=== PATIENT | female | born 1975 | race Caucasian/White ===

== ENCOUNTER 2016-03-17 09:27 | Outpatient (CLI) | payer OTHER | END 2016-03-17 09:28 | disposition home or self-care (01) | DX: E04.2 Nontoxic multinodular goiter (principal) ==

== ENCOUNTER 2016-04-15 08:45 | Outpatient (CLI) | payer OTHER ==
[2016-04-15] MEDS ORDERED: BUFFERED LIDOCAINE 10 ML SYRINGE IU ONE (16:16)
== END 2016-04-15 08:46 | disposition home or self-care (01) ==
DX: E04.1 Nontoxic single thyroid nodule (principal)

== ENCOUNTER 2017-03-02 12:29 | Outpatient (CLI) | payer OTHER ==
[2017-03-02 12:53] LABS: BASOPHILS # (AUTO) 0.1 10^3/uL (0.0-0.1); BASOPHILS % (AUTO) 0.6 %; EOSINOPHILS # (AUTO) 0.1 10^3/uL (0.0-0.7); EOSINOPHILS % (AUTO) 1.1 %; LYMPHOCYTES # (AUTO) 2.9 10^3/uL (1.5-3.5); LYMPHOCYTES % (AUTO) 31.3 %; MEAN CORPUSCULAR HEMOGLOBIN 32.3 pg (27.0-31.0); MEAN CORPUSCULAR HGB CONC 34.6 g/dL (32.0-36.0); MEAN CORPUSCULAR VOLUME 93.3 fL (81.0-99.0); MEAN PLATELET VOLUME 8.8 fL (7.9-10.8); MONOCYTES # (AUTO) 0.5 10^3/uL (0.0-1.0); MONOCYTES % (AUTO) 5.8 %; NEUTROPHILS # (AUTO) 5.8 10^3/uL (1.5-6.6); NEUTROPHILS % (AUTO) 61.2 %; PLT - PLATELET COUNT 189 10^3/uL (130-450); RED BLOOD COUNT 4.64 10^6/uL (4.20-5.40); RED CELL DISTRIBUTION WIDTH 12.8 % (12.0-15.0); WHITE BLOOD COUNT 9.4 x10^3/uL (4.8-10.8)
--- NOTE | 2017-03-02 13:31 | PREOP HISTORY & PHYSICAL ---
DATE OF ADMISSION: 03/03/2017 IDENTIFICATION: This is a 42-year-old G2, P0-1-1-1. HISTORY OF PRESENT ILLNESS: Majo is a patient of [facility] who presented to us initially from [facility]. Majo had an annual examination on 09/22/2016, which included a Pap smear. 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 She was then referred to our clinic where Dr. Cr Rojas did a colposcopy on 10/19/2016. This subsequently revealed high-grade squamous intraepithelial lesion, severe dysplasia/CHELI 3 on the ectocervix at 6 o'clock and similarly on the ectocervix at 11 o'clock. Majo then underwent a cervical conization on 12/09/2016, which revealed superficially invasive well-differentiated squamous cell carcinoma with a maximum diameter of tumor of 3 mm, depth of invasion at 2 mm, negative for a lymphovascular space invasion. Margins of the deep resection surface are 2 mm, ectocervical margin 2 mm, endocervical margin greater than 1 cm. The background of high-grade squamous intraepithelial lesion, CHELI 3 ectocervical margin positive for CHELI 3, endocervical margin 3 mm from CHELI 3, AJCC stage pT1a1, NX MX. Dr. Rojas then consulted gynecological oncology who recommended Majo to undergo a simple hysterectomy, given that is a squamous cell carcinoma 1A1. Dr. Rojas unfortunately has retired so I am resuming care. I discussed with Majo my recommendations of proceeding to a total laparoscopic hysterectomy, bilateral salpingectomy and cystoscopy. Included in our discussion were the risks of hemorrhage, infection and damage to surrounding organs. With respect to damage of surrounding organs, this may be an inadvertent laceration cauterization or ligation of the adjacent intestines, bladder or ureters. Furthermore, after this procedure, she will no longer be able to have children nor will she have menses. Finally, though treatment for squamous cell carcinoma 1A1 is a simple hysterectomy, she will require to undergo serial cytology, perhaps Pap smears every 6 months to assure that there is no recurrence. After Majo's questions were answered to her satisfaction, she verbalized her desire to proceed with the aforementioned procedures. Consent forms have been signed. Currently, Majo is doing well. She denies any nausea, vomiting, fevers, chills, diarrhea, constipation. She is accompanied today with her Matthew and her grandchild Aliya. PAST MEDICAL HISTORY: Anxiety. PAST SURGICAL HISTORY: In 2017, cold knife cone biopsy. ALLERGIES: NO DRUG ALLERGIES. MEDICATIONS: Zoloft 50 mg. SOCIAL HISTORY: She has been able to quit smoking with Chantix as 2017. She denies any alcohol or illicit drug use. Majo works at [employer] and her Matthew, who is a beauty artist. She is helping to raise her granddaughter Aliya. Her daughter's name is Triny Munoz. PAST OBSTETRICAL HISTORY: One spontaneous vaginal delivery, weighing 5 pounds 8 ounces at 36 weeks. PAST GYNECOLOGICAL HISTORY: She denies any other sexually transmitted diseases with the exception of HPV. She does have monthly menses and they do alternate in heaviness and pain. The pain is not debilitating. FAMILY HISTORY: Great grandmother had breast cancer. REVIEW OF SYSTEMS: Negative unless otherwise stated. PHYSICAL EXAMINATION VITAL SIGNS: Weight is the 136 pounds, blood pressure 116/76, height is 62 inches, BMI is 20.3. GENERAL: Majo is a well-developed, well-nourished, female, in no apparent distress. She is alert and oriented x3. She appears to be her stated age. Majo is intelligent and very pleasant. HEENT: Within normal limits. HEART: Regular. No murmurs or rubs. PULMONARY: Lungs are clear to auscultation bilaterally. ABDOMEN: Soft, nontender. No masses, rebound, rigidity, or guarding. ASSESSMENT 1. A 42-year-old G2, P0-1-1-1. 2. 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 PLAN 1. Majo has signed consent forms 2. Majo will get a CBC and type and screen in preparation for tomorrow's surgery. 3. Anticipate giving Majo Celebrex as well as cefazolin preoperatively. She also will receive SCDs in the operating room, since she is at increased risk for DVT given the surgery and the diagnosis of squamous cell carcinoma. 4. Postoperative medications for her recuperation have been sent into [facility] in [place], [place], specifically for ibuprofen, Tylenol and Colace. A handwritten prescription for oxycodone has been given to Majo. 5. Majo is to see me at [facility] in 2 weeks for a routine postoperative examination. 6. Majo needs to continue to see me for repeat cytology, perhaps every 6 months Pap smear. TD: 03/02/2017 14:30 MTDD
== END 2017-03-02 12:30 | disposition home or self-care (01) ==
LOC: LAB 12:29
PROVIDERS: ATTEND Obstetrics & Gynecology
DX: Z01.812 Encounter for preprocedural laboratory examination (principal); C80.1 Malignant (primary) neoplasm, unspecified
CPT/HCPCS: 36415; 84703; 85025; 86850; 86900; 86901

== ENCOUNTER 2017-03-03 06:16 | Day surgery (SDC) | payer OTHER ==
[2017-03-03] MEDS ORDERED: ceFAZolin 2 GM/50 ML 2 GM/50 ML BAG IV ONE (06:30)
[2017-03-03] MEDS ORDERED: CELECOXIB 100 MG CAPSULE PO ONE (06:30)
[2017-03-03] MEDS ORDERED: LACTATED RINGERS 1,000 ML IV ONE ×4 (07:05→12:31)
[2017-03-03] MEDS ORDERED: LIDOCAINE-MPF 2% 5 ML VIAL IM ONE (07:30)
[2017-03-03] MEDS ORDERED: PHENYLEPHRINE 50 MG/5 ML VIAL IV ONE (07:30)
[2017-03-03] MEDS ORDERED: ONDANSETRON 4 MG/2 ML VIAL IVP ONE (07:30)
[2017-03-03] MEDS ORDERED: DEXAMETHASONE 4 MG/ML VIAL IVP ONE (07:30)
[2017-03-03] MEDS ORDERED: NEOSTIGMINE 1 MG/1 ML 10 ML MDV IVP ONE (07:30)
[2017-03-03] MEDS ORDERED: MIDAZOLAM 2 MG/2 ML VIAL IVP ONE (07:30)
[2017-03-03] MEDS ORDERED: ROCURONIUM 50 MG/5 ML VIAL IVP ONE (07:30)
[2017-03-03] MEDS ORDERED: KETOROLAC 30 MG/ML VIAL IVP ONE (07:30)
[2017-03-03] MEDS ORDERED: PROPOFOL 200 MG/20 ML VIAL IVP ONE (07:30)
[2017-03-03] MEDS ORDERED: fentaNYL 100 MCG/2 ML VIAL IVP ONE (07:30)
[2017-03-03] MEDS ORDERED: ACETAMINOPHEN 1,000 MG/100 ML 100 ML IV ONE (07:30)
[2017-03-03] MEDS ORDERED: GLYCOPYRROLATE 1 MG/5 ML VIAL IVP ONE (07:30)
[2017-03-03 08:30] LABS: HCG,QUALITATIVE BLOOD NEGATIVE
[2017-03-03] MEDS ORDERED: BUPIVACAINE 0.25%-EPI 1:200000 PF 30 ML VIAL SUBQ ONE ×2 (08:30)
[2017-03-03] MEDS ORDERED: METHYLENE BLUE 0.5% 50 MG/10 ML AMPULE IVP ONE (09:46)
[2017-03-03] MEDS ORDERED: ONDANSETRON 4 MG/2 ML VIAL ONE (10:23)
--- NOTE | 2017-03-03 10:26 | OPERATIVE REPORT ---
Operative Report - Other Other Information/Narrative: Date of Operation: 03/03/2017 Surgeon: Demi Gray DO FACOG Flue Dust Laborer: Thomas Hinson MD FACOG Sales Representative [employer]: Vinicius Ivan CRNA Anesthesia: GET Pre-op Dx: 1. 42 yo 2. 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 42 yo 2. Squamous cell carcinoma 1A1 Procedures: 1. TLH, BS 2. Cystoscopy Findings: 1. Filmy adhesions from the omentum to the uterus 2. Adhesions on adnexae bilaterally with left greater than the right 3. Normal appendix and liver edge 4. Normal uterus, ovaries and fallopian tubes Specimens: Uterus and fallopian tubes, en bloc Drains: Hackett catheter EBL: 20 mL Complications: None Dictation: [id number]
[2017-03-03] MEDS ORDERED: ATROPINE ABBOJECT 1 MG/10 ML SYRINGE IVP ONE (10:32)
[2017-03-03] MEDS: fentaNYL 100 MCG/2 ML VIAL ONE ×2 (10:44→10:50)
[2017-03-03] MEDS ORDERED: oxyCODONE 5 MG TABLET ONE ×2 (11:37→14:53)
--- NOTE | 2017-03-03 11:37 | OPERATIVE REPORT ---
DATE OF OPERATION: 03/03/2017 SURGEON: Demi De La Cruz DO, FACOG HOSPITALITY MANAGER: Thomas Hinson MD, FACOG MASTER PILOT: Vinicius Ivan CRNA ANESTHESIA: General endotracheal tube. PREOPERATIVE DIAGNOSES 1. A 42-year-old G2, P0-1-1-1. 2. 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 POSTOPERATIVE DIAGNOSES 1. A 42-year-old G2, P0-1-1-1 2. 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 PROCEDURE 1. Total laparoscopic hysterectomy and bilateral salpingectomy. 2. Cystoscopy. FINDINGS 1. Filmy adhesions on omentum and the uterus. 2. Adhesions seen bilaterally on the adnexa with the left side greater than the right side. 3. Normal appendix and liver edge. 4. Normal uterus, ovaries and fallopian Tubes. SPECIMENS: Uterus and fallopian tubes en bloc. DRAINS: Hackett catheter to gravity. ESTIMATED BLOOD LOSS: 20 mL COMPLICATIONS: None. BRIEF HISTORY: Majo is a patient of [facility], who was found to have squamous cell carcinoma of the cervix 1A1. She had a Pap smear in December of 2016 showing a high grade squamous intraepithelial lesion. Subsequent colposcopy revealed CHELI 3. She then had a cold knife cone biopsy which revealed squamous cell carcinoma in situ 1A1. After consultation with PRODUCE SPECIALIST /ONC, it was recommended that Majo undergo a simple hysterectomy. I discussed with Majo my recommendation to undergo a total laparoscopic hysterectomy, bilateral salpingectomy and cystoscopy. I discussed with Majo the risks, benefits, alternatives, indications, and expectations of the aforementioned procedures. Included is discussion of the risk of hemorrhage, infection and damage to surrounding organs. With respect to damage to surrounding organs, this may be an inadvertent laceration, cauterization or ligation of the adjacent intestines, bladder or ureters. Furthermore, with this procedure, she will not be able to have any more children nor would she have menses. Finally, due to the nature of the carcinoma, she will need to have more frequent cytology for surveillance. After all of Majo's questions were answered to her satisfaction, she verbalized her desire to proceed with surgery. Consent forms have been signed. Majo was identified and consented, taken to the operating room where IV access was already in place. She was then given sequential compression devices which were placed on the lower extremities and turned on. Majo was given 2 grams of Ancef for postoperative cellulitis prophylaxis. Majo was then given satisfactory general endotracheal tube anesthesia as per Vinicius Ivan CRNA. A Hackett catheter was placed in her bladder and a timeout was performed. We correctly identified the patient, site of the procedure and the procedures themselves. Majo was prepped and drapped in the normal sterile fashion in the lithotomy position using the Yellofin stirrups. A large VCare uterine manipulator and colpotimizer was placed on the uterus. Three laparoscopic port sites were first identified in the abdomen. All port sites were injected with 0.25% Marcaine with epinephrine. Approximately a total of 10 mL were used. Three 5 mm stab incisions were made in the subumbilical fold and in the right and left lower quadrants. The lower quadrant incisions were found by first identifying the anterior superior iliac spine and then moving 2 fingerbreadths superior and medial to those locations. The entrance to the abdomen was made using the Visiport trocars. Direct access to the abdomen was made. No damage to intraabdominal organs was noted. The other 2 port sites were placed under direct visualization of the camera. CO2 was then used to insufflate the abdomen thus obtaining satisfactory pneumoperitoneum. Inspection of the pelvis revealed that the omentum was adhesed to the uterus. Furthermore, there were significant thickened adhesions in the left adnexa. There were some smaller adhesions on the right adnexa. The appendix was also visualized and found to be within normal limits. The liver edge was seen as well as the gallbladder. The omentum was first dissected off the uterus using the LigaSure. Next, the left adnexa was lysed from the adhesions. The left fallopian tube was identified and followed out to the fimbriated end. The left fallopian tube was incised in the mesosalpinx. The true ligament of the ovary was then cauterized and incised with the LigaSure. Next, the round ligament was clamped, cauterized and incised with the LigaSure. This incision was then carried inferiorly through the broad ligament. An incision was made in the anterior leaf of the broad ligament and the incision was carried inferiorly and then medially in order to create a bladder flap. The vesicouterine peritoneum was then further dissected in order to develop this bladder flap. Next, the left uterine artery was identified, clamped, cauterized and incised with the LigaSure. The cardinal ligaments were similarly clamped, cut, and cauterized. Hemostasis was noted. In the same fashion, the right fallopian tube was then excised. In a similar fashion, the true ligament of the right ovary, right round ligament and right uterine artery were then clamped, cauterized, and incised. An incision was made in the broad ligament on the right side and then extended inferiorly in order to join the bladder flap that had been partially created. Further dissection was made on top of the cervical uterine tissue. At this point in time, the superior cup of the VCare was palpated easily. With the Harmonic blade, an incision was made on the vagina. The superior green cup of the VCare was seen. The cervix was then amputated from the vagina. The uterus and fallopian tubes were then removed from the pelvis. Pneumoperitoneum was maintained by placing a glove with sponges inside the vagina. The vaginal cuff was then closed with a running stitch of 3-0 V-Loc suture. Hemostasis was noted. The CO2 gas was then allowed to escape into the atmosphere relieving the pneumoperitoneum. All instruments were removed out of the abdomen and the three laparoscopic sites were closed with 4-0 Monocryl in subcuticular fashion and then Dermabond placed on top of each of the port sites. Attention was then turned towards the cystoscopy. With the 70-degree cystoscope and normal saline, the bladder was then visualized. Both ureteral orifices were identified and ureteral jets were seen bilaterally. A Hackett catheter was replaced. At this point in time, the procedure had been completed. All sponge, lap, and needle counts were correct x2 as per nurse report. Majo was taken back to recovery room in stable condition. She will be discharged to home later today after postoperative criteria have been met. Majo will be expected to urinate before she goes home. She already has prescriptions for pain medications for her convalescence. Majo is expected to see me at [facility] in 2 weeks for routine postop check. Again, she will need to have frequent cytology approximately every 6 months, at least for the next 2- 3 years. TD: 03/03/2017 12:32 [facility]
[2017-03-03 15:39] VITALS: BP 118/83
== END 2017-03-03 06:17 | disposition home or self-care (01) ==
LOC: SDS 06:16
PROVIDERS: ATTEND Obstetrics & Gynecology
PROC: 0UT74ZZ Resection of Bilateral Fallopian Tubes, Percutaneous Endoscopic Approach (ICD-10-PCS; 2017-03-03)
PROC: 0UT94ZZ Resection of Uterus, Percutaneous Endoscopic Approach (ICD-10-PCS; principal; 2017-03-03 07:30)
DX: D06.9 Carcinoma in situ of cervix, unspecified (principal); N73.6 Female pelvic peritoneal adhesions (postinfective); Z87.891 Personal history of nicotine dependence; F41.9 Anxiety disorder, unspecified
CPT/HCPCS: 58571; 84703; A9270; J0131; J0690; J7120

== ENCOUNTER 2019-02-17 07:00 | Outpatient (CLI) | payer OTHER | END 2019-02-17 23:59 | disposition home or self-care (01) | LOC: LAB.R 07:00 | PROVIDERS: ATTEND Physician Assistant Medical | DX: J02.9 Acute pharyngitis, unspecified (principal) | CPT/HCPCS: 87070; 87077 ==

== ENCOUNTER 2019-02-17 11:52 | Outpatient (CLI) | payer OTHER ==
[2019-02-17 19:05] LABS: BASOPHILS % (AUTO) 0.4 %; EOSINOPHILS # (AUTO) 0.1 10^3/uL (0.0-0.7); HGB - HEMOGLOBIN 14.8 g/dL (12.0-16.0); LYMPHOCYTES # (AUTO) 2.8 10^3/uL (1.5-3.5); LYMPHOCYTES % (AUTO) 28.5 %; MEAN CORPUSCULAR HEMOGLOBIN 32.7 pg (27.0-31.0); MEAN CORPUSCULAR HGB CONC 32.6 g/dL (32.0-36.0); MEAN CORPUSCULAR VOLUME 100.4 fL (81.0-99.0); MEAN PLATELET VOLUME 12.5 fL (7.9-10.8); MONOCYTES # (AUTO) 0.5 10^3/uL (0.0-1.0); MONOCYTES % (AUTO) 4.7 %; NEUTROPHILS # (AUTO) 6.4 10^3/uL (1.5-6.6); PLT - PLATELET COUNT 207 10^3/uL (130-450); RED BLOOD COUNT 4.52 10^6/uL (4.20-5.40); RED CELL DISTRIBUTION WIDTH 12.4 % (12.0-15.0); WHITE BLOOD COUNT 9.8 x10^3/uL (4.8-10.8)
[2019-02-17 19:26] LABS: CALCIUM 9.4 mg/dL (8.5-10.3); CREATININE 0.7 mg/dL (0.4-1.0)
== END 2019-02-17 23:59 | disposition home or self-care (01) ==
LOC: LAB.N 11:52
PROVIDERS: ATTEND Physician Assistant Medical
DX: J02.9 Acute pharyngitis, unspecified (principal)
CPT/HCPCS: 36415; 80048; 85025

== ENCOUNTER 2019-07-14 09:34 | Emergency (ER) | payer OTHER ==
--- NOTE | 2019-07-14 11:32 | XRAY Report ---
Reason: cough Procedure Date: 07/14/2019 Accession Number: [id number] / [id number] Procedure: XR - Chest 2 View X-Ray CPT Code: 41950 Final Report FULL RESULT: PROCEDURE: Chest 2 View X-Ray INDICATIONS: cough TECHNIQUE: 2 view(s) of the chest. COMPARISON: None. FINDINGS: Surgical changes and devices: None. Lungs and pleura: No pleural effusions or pneumothorax. Lungs are clear. Mediastinum: Mediastinal contours are normal. Heart size is normal. Bones and chest wall: No suspicious bony abnormalities. Soft tissues appear unremarkable. IMPRESSION: No acute cardiopulmonary disease process. Reviewed by: Tequila Luna MD, PhD on 07/14/2019 11:31 AM PDT Approved by: Tequila Luna MD, PhD on 07/14/2019 11:31 AM PDT Station ID: [id number]
[2019-07-14 11:51] LABS: BASOPHILS % (AUTO) 0.4 %; EOSINOPHILS # (AUTO) 0.1 10^3/uL (0.0-0.7); HGB - HEMOGLOBIN 15.4 g/dL (12.0-16.0); MEAN CORPUSCULAR HEMOGLOBIN 31.5 pg (27.0-31.0); MEAN CORPUSCULAR HGB CONC 33.3 g/dL (32.0-36.0); MEAN CORPUSCULAR VOLUME 94.7 fL (81.0-99.0); MEAN PLATELET VOLUME 10.2 fL (7.9-10.8); MONOCYTES # (AUTO) 0.8 10^3/uL (0.0-1.0); MONOCYTES % (AUTO) 7.3 %; NEUTROPHILS # (AUTO) 6.5 10^3/uL (1.5-6.6); PLT - PLATELET COUNT 228 10^3/uL (130-450); RED BLOOD COUNT 4.89 10^6/uL (4.20-5.40); RED CELL DISTRIBUTION WIDTH 12.1 % (12.0-15.0); WHITE BLOOD COUNT 10.4 x10^3/uL (4.8-10.8)
[2019-07-14 12:03] LABS: ALBUMIN 4.5 g/dL (3.2-5.5); ALBUMIN/GLOBULIN RATIO 1.4 (1.0-2.2); BILIRUBIN,TOTAL 0.7 mg/dL (0.2-1.0); CALCIUM 10.4 mg/dL (8.5-10.3); CREATININE 0.8 mg/dL (0.4-1.0); TOTAL PROTEIN 7.8 g/dL (6.7-8.2)
[2019-07-14 12:30] VITALS: BP 103/64
--- NOTE | 2019-07-14 12:34 | ED Physician Documentation ---
History of Present Illness - Stated complaint Stated Complaint: SORE THROAT - Chief complaint Chief Complaint: Heent - History obtained from History obtained from: Patient - Additonal information Additional information: Patient comes emergency department complaining of ongoing sore throat since last December, and intermittent episodes of chest tightness that occur randomly for the last few weeks. She states that she has been seen multiple times by her primary care physician who was tested her repeatedly for strep, as well as for mono and is referred her to ENT. Patient states that she was told to come here because of the chest discomfort. She states she is otherwise healthy and is fit and has had not had any dyspnea on exertion. No history of chest pain prior. She is not known to have GERD. She is also not known to have any allergies. No other complaints at this time. Patient states the only thing that makes the chest discomfort get better when it happens is to drink ice water. She states she feels somewhat anxious when she feels the symptoms come on, but that somehow, drinking ice water makes things better. Review of Systems Ten Systems: 10 systems reviewed and negative Constitutional: reports: Reviewed and negative Eyes: reports: Reviewed and negative Ears: reports: Reviewed and negative Nose: reports: Reviewed and negative Throat: reports: Sore throat Cardiac: reports: Chest pain / pressure (Tightness), Reviewed and negative Respiratory: reports: Reviewed and negative. 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 - Present Medications Home Medications: Ambulatory Orders Medication Instructions Recorded Confirmed Sertraline [Zoloft] 25 mg PO DAILY 12/09/16 03/03/17 - Allergies Allergies/Adverse Reactions: Allergies Allergy/AdvReac Type Severity Reaction Status Date / Time No Known Drug Allergies Allergy Verified 07/14/19 09:54 - Social History Does the pt smoke?: Yes Smoking Status: Current every day smoker Does the pt drink ETOH?: No Does the pt have substance abuse?: No - POLST Patient has POLST: No PD ED PE NORMAL - Vitals Vital signs reviewed: Yes - General General: Alert and oriented X 3, No acute distress - HEENT HEENT: Atraumatic, PERRL, EOMI, Moist mucous membranes, Pharynx benign, Dentition benign - Neck Neck: Supple, no meningeal sign - Cardiac Cardiac: RRR, No murmur, Strong equal pulses - Respiratory Respiratory: No respiratory distress, Clear bilaterally - Abdomen Abdomen: Soft, Non tender, Non distended - Derm Derm: Normal color, Warm and dry, No rash - Extremities Extremities: No deformity, No edema, No calf tenderness / cord - Neuro Neuro: Alert and oriented X 3, Other (Grossly normal) - Psych Psych: Normal mood, Normal affect Results - Vitals Vitals: Vital Signs - 24 hr 07/14/19 07/14/19 07/14/19 09:49 09:54 12:29 Temperature 36.0 C L Heart Rate 84 85 60 Respiratory 16 16 15 Rate Blood Pressure 137/87 H 125/65 103/64 O2 Saturation 99 99 100 Oxygen O2 Source Room air - Labs Labs: Laboratory Tests 07/14/19 07/14/19 07/14/19 11:41 11:41 11:41 WBC 10.4 RBC 4.89 Hgb 15.4 Hct 46.3 MCV 94.7 MCH 31.5 H MCHC 33.3 RDW 12.1 Plt Count 228 MPV 10.2 Neut # (Auto) 6.5 Lymph # (Auto) 3.0 [place] # (Auto) 0.8 Eos # (Auto) 0.1 Baso # (Auto) 0.0 Absolute Nucleated RBC 0.00 Nucleated RBC % 0.0 Sodium 139 Potassium 4.6 Chloride 101 Carbon Dioxide 29 Anion Gap 9.0 BUN 13 Creatinine 0.8 Estimated GFR (MDRD) 78 L Glucose 102 H Calcium 10.4 H Total Bilirubin 0.7 AST 17 ALT 27 Alkaline Phosphatase 40 L Troponin I High Sens 2.4 Total Protein 7.8 Albumin 4.5 Globulin 3.3 Albumin/Globulin Ratio 1.4 PD MEDICAL DECISION MAKING - ED course Complexity details: reviewed results, re-evaluated patient, considered differential, d/w patient ED course: I discussed with the patient that I think it is unlikely that she would have any lung or cardiac issues, given what she is describing, and that I actually suspect that she may have some issues with reflux at night, given the chest tightness and its resolution with ice water, as well as the ongoing sore throat. She is already been tested for other things that I would suggest, and the patient has not been febrile or otherwise ill to suggest COVID or influenza. Patient's labs and chest x-ray are unremarkable. I have advised her to continue her plans to follow-up with ENT, and have also advised her to discuss with her primary care physician whether she should have a GI referral, as well. Departure - Departure Disposition: Home, Self Care Clinical Impression: Sore throat, Chest tightness Condition: Stable Instructions: Sore Throats Self Care, ED Chest Pain Atypical Unkn Cause Comments: Your labs, EKG, and chest x-ray all look good. There is no evidence of any abnormalities, no evidence of an emergent condition causing her symptoms. Is not clear why you continue to have the chest discomfort and sore throat. As we discussed, the best course of action at this point is for you to follow-up with ENT as you see you have already begun planning to do. Please also talk to your primary care physician about possibly being referred to a antisqueak filler for endoscopy.
== END 2019-07-14 12:52 | disposition home or self-care (01) ==
LOC: ED 09:34
DX: J02.9 Acute pharyngitis, unspecified (principal); R07.89 Other chest pain; F17.200 Nicotine dependence, unspecified, uncomplicated
CPT/HCPCS: 36415; 71046; 80053; 84484; 85025; 93005; 99284

== ENCOUNTER 2019-09-01 07:00 | Outpatient (CLI) | payer OTHER | END 2019-09-01 23:59 | disposition home or self-care (01) | LOC: LAB.R 07:00 | PROVIDERS: ATTEND Family Medicine | DX: J02.9 Acute pharyngitis, unspecified (principal) | CPT/HCPCS: 87070; 87077 ==

== ENCOUNTER 2019-10-10 15:06 | Outpatient (CLI) | payer OTHER ==
[2019-10-10 18:33] LABS: HGB - HEMOGLOBIN 15.6 g/dL (12.0-16.0); MEAN CORPUSCULAR HEMOGLOBIN 33.4 pg (27.0-31.0); MEAN CORPUSCULAR HGB CONC 34.4 g/dL (32.0-36.0); MEAN CORPUSCULAR VOLUME 97.2 fL (81.0-99.0); MEAN PLATELET VOLUME 11.7 fL (7.9-10.8); RED BLOOD COUNT 4.67 10^6/uL (4.20-5.40); RED CELL DISTRIBUTION WIDTH 12.3 % (12.0-15.0); WHITE BLOOD COUNT 10.7 x10^3/uL (4.8-10.8)
[2019-10-10 18:49] LABS: RHEUMATOID FACTOR NEGATIVE (Negative)
[2019-10-10 18:53] LABS: URIC ACID 4.8 mg/dL (2.6-7.2)
[2019-10-10 18:57] LABS: CRP - C-REACTIVE PROTEIN < 1.0 mg/dL (0-1.0)
[2019-10-12 13:57] LABS: ANA SCREEN NEGATIVE (NEGATIVE); DNA (DS) ANTIBODY <1 IU/mL
[2019-10-12 20:51] LABS: CYCLIC CITRULL PEPTIDE CCP IGG <16 UNITS
== END 2019-10-10 23:59 | disposition home or self-care (01) ==
LOC: LAB.WCP 15:06
PROVIDERS: ATTEND Family Medicine
DX: J02.9 Acute pharyngitis, unspecified (principal)
CPT/HCPCS: 36415; 84550; 85025; 85027; 85651; 86038; 86140; 86200; 86225; 86430

== ENCOUNTER 2019-12-13 08:00 | Outpatient (CLI) | payer OTHER | END 2019-12-13 23:59 | disposition home or self-care (01) | LOC: LAB.R 08:00 | PROVIDERS: ATTEND Obstetrics & Gynecology | DX: Z11.3 Encounter for screening for infections with a predominantly sexual mode of transmission (principal) | CPT/HCPCS: 81599; 87491; 87591; 87661 ==

== ENCOUNTER 2019-12-13 15:04 | Outpatient (CLI) | payer OTHER ==
[2019-12-13 15:51] LABS: CHOL/HDL RATIO 2.4 (<4.4); CHOLESTEROL 191 mg/dL; HDL CHOLESTEROL 80 mg/dL; LDL CHOLESTEROL,CALCULATED 98 mg/dL; LDL/HDL RATIO 1.2 (<4.4); VLDL CHOLESTEROL 13 mg/dL
[2019-12-14 07:43] LABS: HIV AG/AB 4TH GEN NON-REACTIVE (NON-REACTIVE)
[2019-12-14 09:48] LABS: HEPATITIS B SURFACE ANTIGEN NON-REACTIVE (NON-REACTIVE)
== END 2019-12-13 15:05 | disposition home or self-care (01) ==
LOC: LAB 15:04
PROVIDERS: ATTEND Obstetrics & Gynecology
DX: Z13.220 Encounter for screening for lipoid disorders (principal); Z11.3 Encounter for screening for infections with a predominantly sexual mode of transmission; F17.210 Nicotine dependence, cigarettes, uncomplicated; Z13.29 Encounter for screening for other suspected endocrine disorder; Z13.21 Encounter for screening for nutritional disorder
CPT/HCPCS: 36415; 80061; 81599; 82306; 83721; 84443; 86592; 87340; 87389

== ENCOUNTER 2019-12-25 16:52 | Outpatient (CLI) | payer OTHER | END 2019-12-25 23:59 | disposition home or self-care (01) | LOC: LAB.R 16:52 | PROVIDERS: ATTEND Internal Medicine | DX: J35.9 Chronic disease of tonsils and adenoids, unspecified (principal) | CPT/HCPCS: 87070 ==

== ENCOUNTER 2019-12-30 09:43 | Outpatient (CLI) | payer OTHER ==
[2019-12-30] MEDS ORDERED: IOVERSOL 320 100 ML VIAL IVP ONE ×2 (10:15→11:22)
--- NOTE | 2019-12-30 11:04 | CT Report ---
PROCEDURE: SOFT TISSUE NECK W INDICATIONS: CHRONIC TONSIL AND ADENOID DISEASE CONTRAST: IV CONTRAST: Optiray 320 ml: 80 PO CONTRAST: *NO PO CONTRAST TECHNIQUE: After the administration of intravenous contrast, 3.0 mm axial sections acquired from the sella to th e aortic arch. Additional oblique axial 3.0 mm sections acquired through the pharynx. 3 mm thick co ok reformats were generated. For radiation dose reduction, the following was used: automated exp osure control, adjustment of mA and/or kV according to patient size. COMPARISON: None. FINDINGS: Image quality: Excellent. Lymph nodes: No enlarged lymph nodes seen throughout the neck. Vessels: Visualized vasculature appears patent. Neck spaces: In this patient with this given history, scrutiny is given to the tonsils and the adeno ids. On these images, the tonsils and adenoids do not appear abnormally enlarged. No masses or abnorm al enhancement can be seen. The oropharynx, nasopharynx, and pharynx demonstrate no mucosal lesions. The vocal cords, false vocal cords, pyriform sinuses, epiglottis, vallecula, and tongue base all mónica ear normal. Extramucosal spaces appear unremarkable. Glands: The parotid and submandibular glands appear normal. The thyroid demonstrates a 2.8 cm nodul e on the right. Miscellaneous: Visualized brain and orbits appear normal. Lung apices appear clear. Superficial so ft tissues appear normal. Bones: No suspicious bony lesions. Interosseous gas is seen involving the superior endplate of C6. T here is a likely vertebral body hemangioma seen along the posterior aspect of C7. Visualized sinuses and mastoids appear unremarkable. IMPRESSION: Normal appearing tonsils and adenoids. 2.8 cm right thyroid nodule incidentally noted. Further workup is recommended, beginning with a dedic ated thyroid ultrasound. No enlarged lymph nodes can be seen. Reviewed by: Alverto Musa MD on 12/30/2019 10:03 AM [facility] Approved by: Alverto Musa MD on 12/30/2019 10:03 AM [facility] Station ID: [id number]
== END 2019-12-30 09:44 | disposition home or self-care (01) ==
LOC: DI 09:43
PROVIDERS: ATTEND Internal Medicine
DX: J35.9 Chronic disease of tonsils and adenoids, unspecified (principal); E04.1 Nontoxic single thyroid nodule
CPT/HCPCS: 70491; Q9967

== ENCOUNTER 2020-01-12 12:59 | Outpatient (CLI) | payer OTHER ==
--- NOTE | 2020-01-12 13:55 | CT Report ---
PROCEDURE: Sinuses INDICATIONS: SINUS CONGESTION TECHNIQUE: Noncontrast 3.0 mm axial images acquired from the frontal sinuses to the mid-sella, with coronal and sagittal reformats. For radiation dose reduction, the following was used: automated exposure control , adjustment of mA and/or kV according to patient size. COMPARISON: None. FINDINGS: Image quality: Excellent. Maxillary Sinuses: No bony remodeling or destruction. Sinuses are clear. Ethmoid Air Cells: No bony remodeling or destruction. Sinuses are clear. Sphenoid Sinuses: No bony remodeling or destruction. Sinuses are clear. Frontal Sinuses: No bony remodeling or destruction. Sinuses are clear. Ostiomeatal Complexes: Ostiomeatal complexes are patent. 7 mm left and 3 mm right Mario cells. Woo er cells. Miscellaneous: Visualized intra-orbital contents are normal. No marilou bullosa. There is mild right solares deviation of the mid nasal septum and mild leftward deviation of the posterior nasal septum. IMPRESSION: 1. No significant sinusitis. 2. Nasal septal deviation. 3. Mario cells bilaterally. Reviewed by: Nahun Rome MD on 01/12/2020 1:54 PM PST Approved by: Nahun Rome MD on 01/12/2020 1:54 PM PST Station ID: [id number]
--- NOTE | 2020-01-12 17:24 | Ultrasound Report ---
PROCEDURE: Head or Neck Soft Tissue INDICATIONS: SINUS CONGESTION TECHNIQUE: Real-time scanning was performed of the thyroid gland, with image documentation. COMPARISON: Thyroid ultrasound 03/18/2016 FINDINGS: Right: Thyroid lobe measures 7.5 x 1.9 x 2.3 cm, and is homogeneous in echotexture. Left: Thyroid lobe measures 5.6 x 1.7 x 1.5 cm, and is homogenous in echotexture. Isthmus: 0.25 mm thick. Nodule number: One Location: Right lobe Size: 2.9 x 1.6 x 2.2 cm, compared to 2.5 x 1.1 x 1.8 cm. Composition: Partially solid Echogenicity: Isoechoic Shape: wider than tall. Margins: Smooth Echogenic foci: None Total points: 3 ACR TI-RADS category: 3 Nodule number: Two Location: Right lobe Size: 1.2 x 0.6 x 1.0 cm. Composition: Partially solid Echogenicity: Hypoechoic Shape: wider than tall. Margins: Smooth Echogenic foci: None Total points: 4 ACR TI-RADS category: 4 Nodule number: Three Location: 1.0 x 0.6 x 0.9 Size: 1.0 x 0.6 x 0.910 mm compared to 0.8 x 0.5 x 0.7 cm. Composition: Solid Echogenicity: Hypoechoic Shape: wider than tall. Margins: Smooth Echogenic foci: Punctate Total points: 7 ACR TI-RADS category: 5 IMPRESSION: 1. Mild interval increase in size of lesion 1, with previous fine-needle aspiration in 2017. Recommen d repeat fine-needle aspiration given interval increase in size. 2. New additional right lobe lesion seen as lesion 2. Given BI-RADS category and size, recommend inte rval follow-up at 1, 2, 3 and 5 years. 3. Minimal interval increase in size of lesion 3 within the left lobe, category 5. Given interval inc rease in size, it meets criteria for fine-needle aspiration. Reviewed by: Jami Curry MD on 01/12/2020 5:23 PM PST Approved by: Jami Curry MD on 01/12/2020 5:23 PM PST Station ID: [id number]
== END 2020-01-12 13:00 | disposition home or self-care (01) ==
LOC: DI 12:59
PROVIDERS: ATTEND Internal Medicine
DX: J34.89 Other specified disorders of nose and nasal sinuses (principal); J34.2 Deviated nasal septum; E04.1 Nontoxic single thyroid nodule
CPT/HCPCS: 70486

== ENCOUNTER 2020-01-16 14:13 | Outpatient (CLI) | payer OTHER ==
--- NOTE | 2020-01-25 09:38 | Mammography Report ---
BILATERAL DIGITAL SCREENING MAMMOGRAM 3D/2D: 01/16/2020 CLINICAL: Routine screening. Comparison is made to exams dated: 02/24/2010 mammogram - [facility], 02/24/2010, 03/14/1999 [facility], 03/13/1999 mammogram - [facility], and 03/13/1999 [facility]. The tissue of both breasts is extremely dense, which lowers the sensitivity of mammography. No significant masses, calcifications, or other findings are seen in either breast. There has been no significant interval change. IMPRESSION: NEGATIVE There is no mammographic evidence of malignancy. A 1 year screening mammogram is recommended. This exam was interpreted at Station ID: [id number]. NOTE: For mammograms, a report in lay terms will be sent to the patient. Approximately 15% of breast malignancies will not be visualized mammographically. In the management of a palpable breast mass, a negative mammogram must not discourage biopsy of a clinically suspicious lesion. Electronically Signed By: Gisela robertson/joseph:01/25/2020 08:52:10 ACR BI-RADS Category 1: Negative 3341F PARENCHYMAL PATTERN: (VD) - The breast(s) demonstrate(s) extremely dense parenchyma, limiting the sen sitivity of mammography. BI-RADS CATEGORY: (1) - 1 RECOMMENDATION: (ANNUAL) - Recommend routine annual screening mammography. 20210116 1 year screening LATERALITY: (B)
== END 2020-01-16 14:14 | disposition home or self-care (01) ==
LOC: DI.N 14:13
PROVIDERS: ATTEND Obstetrics & Gynecology
DX: Z12.31 Encounter for screening mammogram for malignant neoplasm of breast (principal)
CPT/HCPCS: 77067

== ENCOUNTER 2020-04-29 12:19 | Outpatient (CLI) | payer OTHER ==
--- NOTE | 2020-04-30 09:27 | Ultrasound Report ---
LIMITED ULTRASOUND OF LEFT BREAST: 04/29/2020 CLINICAL: Palpable left breast lump. Comparison is made to exams dated: 01/16/2020 mammogram - [facility], 02/24/2010 kevin mogram - [facility], 02/24/2010, 03/14/1999 [facility], 03/13/1999 mammogram - [facility], and 03/13/1999 [facility]. Color flow and real-time ultrasound of the left breast 12 o'clock region were performed. Bobby scale images of the real-time examination were reviewed. There is a benign 3.2 cm x 3.2 cm x 1.6 cm oval fibroadenoma in the left breast at 12 o'clock posteri or depth 3.5 cm from the nipple. This oval fibroadenoma is hypoechoic with posterior acoustic enhanc ement. This abnormality is not significantly changed. Color flow imaging demonstrates that there is no increase in vascularity. There also is a benign 0.5 cm x 0.3 cm cyst in the left breast at 1 o'clock posterior depth. IMPRESSION: BENIGN There is no sonographic evidence of malignancy. The 3.2 cm x 3.2 cm x 1.6 cm oval fibroadenoma in the left breast at 12 o'clock posterior depth is be nign and stable since 2010. The 0.5 cm x 0.3 cm cyst in the left breast at 1 o'clock posterior depth is benign. Return to annual mammogram screening schedule is recommended. Future imaging is recommended as follo ws: 01/16/2021 screening mammogram. This exam was interpreted at Station ID: [id number]. Electronically Signed By: Nikhil Rivera acr/:04/29/2020 13:30:57 Ultrasound BI-RADS: 2 Benign BI-RADS CATEGORY: (2) - 2 Mammogram 20210116 return to screening LATERALITY: (B)
--- OUTSIDE RECORDS SUMMARY | 2020-05-14 15:14 | EXTERNAL MEDICAL SUMMARY RPT | Continuity of Care Document ---
:1975 Demographics Phone Unavailable Preferred Language Lao Marital Status Unknown Uatsdin Affiliation Unknown Race Unknown Ethnic Group Unknown Author Organization [place] Address [address] [phone] Phone Care Team Providers Name Role Phone Garber Unavailable Unavailable Problems date description facility 20200219 Encounter for screening for other viral diseases [facility] 20200222 Chronic tonsillitis [facility] 20200222 Nontoxic multinodular goiter [facility] Other chronic pain [facility] 20200222 Pain in throat [facility] Medications date description facility 20200222 Omeprazole 20 MG Enteric Coated Capsule [facility] 20200222 Ascorbic Acid 1000 MG Extended Release Tablet [facility] 20200222 Cholecalciferol 5000 UNT Oral Tablet I [facility] Procedures date description facility 20200219 [facility] date description facility 20200222 [facility] Vital Signs date measurement value source 20200222 BMI 20.1 kg/m2 20200222 BP_diastolic 82 mm[Hg] 20200222 BP_systolic 125 mm[Hg] 20200222 heart_rate 78 /min 20200222 height_metric 157.48 cm 20200222 height_standard 62 in 20200222 respiration_rate 16 /min 20200222 temperature_metric 36.83 C 20200222 temperature_standard 98.3 F 20200222 weight_metric 49.89 kg 20200222 weight_standard 109.99 lb Social History date description facility [id number]
== END 2020-04-29 12:20 | disposition home or self-care (01) ==
LOC: DI 12:19
PROVIDERS: ATTEND Internal Medicine
DX: N60.02 Solitary cyst of left breast (principal); D24.2 Benign neoplasm of left breast

== ENCOUNTER 2020-10-18 10:12 | Outpatient (CLI) | payer OTHER ==
[2020-10-18 18:06] LABS: CALCIUM 9.6 mg/dL (8.5-10.3); CREATININE 0.9 mg/dL (0.4-1.0); POTASSIUM 4.2 mmol/L (3.5-5.0)
[2020-10-18 18:27] LABS: THYROID STIMULATING HORMONE 0.39 uIU/mL (0.34-5.60)
[2020-10-18 18:32] LABS: FREE T4 (FREE THYROXINE) 1.01 ng/dL (0.58-1.64)
[2020-10-18 18:55] LABS: FOLLICLE STIMULATING HORMONE 21.29 mIU/mL
[2020-10-18 18:56] LABS: LUTEINIZING HORMONE 16.29 mIU/mL
== END 2020-10-18 23:59 | disposition home or self-care (01) ==
LOC: LAB.WCP 10:12
PROVIDERS: ATTEND Internal Medicine
DX: N95.1 Menopausal and female climacteric states (principal)
CPT/HCPCS: 36415; 80048; 82670; 83001; 83002; 84439; 84443

== ENCOUNTER 2020-12-16 15:25 | Outpatient (CLI) | payer OTHER | END 2020-12-16 15:26 | disposition home or self-care (01) | LOC: LAB 15:25 | PROVIDERS: ATTEND Obstetrics & Gynecology | DX: Z53.9 Procedure and treatment not carried out, unspecified reason (principal) ==

== ENCOUNTER 2020-12-17 07:56 | Outpatient (CLI) | payer OTHER ==
[2020-12-17 08:23] LABS: BASOPHILS % (AUTO) 0.5 %; EOSINOPHILS # (AUTO) 0.1 10^3/uL (0.0-0.7); EOSINOPHILS % (AUTO) 1.7 %; HCT - HEMATOCRIT 42.4 % (37.0-47.0); HGB - HEMOGLOBIN 13.7 g/dL (12.0-16.0); LYMPHOCYTES # (AUTO) 1.8 10^3/uL (1.5-3.5); LYMPHOCYTES % (AUTO) 31.3 %; MEAN CORPUSCULAR HEMOGLOBIN 32.2 pg (27.0-31.0); MEAN CORPUSCULAR HGB CONC 32.3 g/dL (32.0-36.0); MEAN CORPUSCULAR VOLUME 99.5 fL (81.0-99.0); MEAN PLATELET VOLUME 10.2 fL (7.9-10.8); MONOCYTES # (AUTO) 0.5 10^3/uL (0.0-1.0); MONOCYTES % (AUTO) 8.9 %; NEUTROPHILS # (AUTO) 3.3 10^3/uL (1.5-6.6); NEUTROPHILS % (AUTO) 57.4 %; PLT - PLATELET COUNT 213 10^3/uL (130-450); RED BLOOD COUNT 4.26 10^6/uL (4.20-5.40); RED CELL DISTRIBUTION WIDTH 12.4 % (12.0-15.0); WHITE BLOOD COUNT 5.7 x10^3/uL (4.8-10.8)
[2020-12-17 08:42] LABS: CHOL/HDL RATIO 2.7 (<4.4); CHOLESTEROL 213 mg/dL; HDL CHOLESTEROL 78 mg/dL; LDL CHOLESTEROL,CALCULATED 112 mg/dL; LDL/HDL RATIO 1.4 (<4.4); TRIGLYCERIDES 116 mg/dL; VLDL CHOLESTEROL 23 mg/dL
[2020-12-17 09:14] LABS: ESTIMATED AVERAGE GLUCOSE 97 mg/dL (70-100)
== END 2020-12-17 07:57 | disposition home or self-care (01) ==
LOC: LAB 07:56
PROVIDERS: ATTEND Obstetrics & Gynecology
DX: Z01.419 Encounter for gynecological examination (general) (routine) without abnormal findings (principal)
CPT/HCPCS: 36415; 80061; 83036; 83721; 85025

== ENCOUNTER 2021-02-25 08:00 | Outpatient (CLI) | payer OTHER ==
[2021-02-25 18:13] LABS: BASOPHILS % (AUTO) 0.7 %; EOSINOPHILS # (AUTO) 0.1 10^3/uL (0.0-0.7); EOSINOPHILS % (AUTO) 1.3 %; HCT - HEMATOCRIT 44.7 % (37.0-47.0); HGB - HEMOGLOBIN 14.9 g/dL (12.0-16.0); LYMPHOCYTES # (AUTO) 1.9 10^3/uL (1.5-3.5); LYMPHOCYTES % (AUTO) 30.6 %; MEAN CORPUSCULAR HEMOGLOBIN 32.7 pg (27.0-31.0); MEAN CORPUSCULAR HGB CONC 33.3 g/dL (32.0-36.0); MEAN CORPUSCULAR VOLUME 98.2 fL (81.0-99.0); MEAN PLATELET VOLUME 12.3 fL (7.9-10.8); MONOCYTES # (AUTO) 0.5 10^3/uL (0.0-1.0); MONOCYTES % (AUTO) 7.4 %; NEUTROPHILS # (AUTO) 3.6 10^3/uL (1.5-6.6); NEUTROPHILS % (AUTO) 59.8 %; PLT - PLATELET COUNT 219 10^3/uL (130-450); RED BLOOD COUNT 4.55 10^6/uL (4.20-5.40); RED CELL DISTRIBUTION WIDTH 12.5 % (12.0-15.0); WHITE BLOOD COUNT 6.1 x10^3/uL (4.8-10.8)
[2021-02-25 18:43] LABS: THYROID STIMULATING HORMONE 0.31 uIU/mL (0.34-5.60)
[2021-02-25 18:47] LABS: ALBUMIN 4.6 g/dL (3.2-5.5); ALBUMIN/GLOBULIN RATIO 1.8 (1.0-2.2); BILIRUBIN,TOTAL 0.9 mg/dL (0.2-1.0); CALCIUM 9.9 mg/dL (8.5-10.3); CREATININE 0.8 mg/dL (0.4-1.0); TOTAL PROTEIN 7.2 g/dL (6.7-8.2)
[2021-02-25 19:13] LABS: FREE T4 (FREE THYROXINE) 0.82 ng/dL (0.58-1.64)
[2021-02-27 15:52] LABS: ALBUMIN 4.7 g/dL (3.8-4.8); ALPHA 1 GLOBULIN 0.2 g/dL (0.2-0.3); ALPHA 2 GLOBULIN 0.6 g/dL (0.5-0.9); BETA 1 GLOBULIN 0.4 g/dL (0.4-0.6); BETA 2 GLOBULIN 0.2 g/dL (0.2-0.5)
== END 2021-02-25 23:59 | disposition home or self-care (01) ==
LOC: LAB.WCP 08:00
PROVIDERS: ATTEND Internal Medicine
DX: R03.0 Elevated blood-pressure reading, without diagnosis of hypertension (principal); R20.2 Paresthesia of skin; F41.9 Anxiety disorder, unspecified
CPT/HCPCS: 36415; 80053; 81599; 82607; 82784; 84155; 84165; 84439; 84443; 85025; 86334

== ENCOUNTER 2021-03-17 13:30 | Outpatient (CLI) | payer OTHER ==
[2021-03-17 18:02] LABS: BASOPHILS % (AUTO) 0.4 %; EOSINOPHILS # (AUTO) 0.1 10^3/uL (0.0-0.7); HGB - HEMOGLOBIN 14.1 g/dL (12.0-16.0); LYMPHOCYTES # (AUTO) 2.8 10^3/uL (1.5-3.5); LYMPHOCYTES % (AUTO) 39.9 %; MEAN CORPUSCULAR HEMOGLOBIN 31.9 pg (27.0-31.0); MEAN CORPUSCULAR VOLUME 99.5 fL (81.0-99.0); MEAN PLATELET VOLUME 12.2 fL (7.9-10.8); MONOCYTES # (AUTO) 0.5 10^3/uL (0.0-1.0); MONOCYTES % (AUTO) 6.7 %; NEUTROPHILS # (AUTO) 3.7 10^3/uL (1.5-6.6); NEUTROPHILS % (AUTO) 51.9 %; PLT - PLATELET COUNT 221 10^3/uL (130-450); RED BLOOD COUNT 4.42 10^6/uL (4.20-5.40); RED CELL DISTRIBUTION WIDTH 12.2 % (12.0-15.0); WHITE BLOOD COUNT 7.1 x10^3/uL (4.8-10.8)
[2021-03-17 18:15] LABS: ALBUMIN 4.4 g/dL (3.2-5.5); ALBUMIN/GLOBULIN RATIO 1.6 (1.0-2.2); ALKALINE PHOSPHATASE 32 IU/L (42-121); ALT ALANINE AMINOTRANSFERASE 26 IU/L (10-60); AST ASPARTATE AMINOTRANSFERASE 21 IU/L (10-42); BILIRUBIN,TOTAL 0.9 mg/dL (0.2-1.0); BUN - BLOOD UREA NITROGEN 13 mg/dL (6-20); CARBON DIOXIDE - CO2 28 mmol/L (21-32); CHLORIDE 100 mmol/L (101-111); CREATININE 0.8 mg/dL (0.4-1.0); GFR - MDRD 77 (>89); GLUCOSE 90 mg/dL (70-100); POTASSIUM 4.1 mmol/L (3.5-5.0); SODIUM 136 mmol/L (135-145); TOTAL PROTEIN 7.1 g/dL (6.7-8.2)
[2021-03-17 18:17] LABS: BILIRUBIN,DIRECT < 0.1 mg/dL (0.1-0.5)
== END 2021-03-17 13:31 | disposition home or self-care (01) ==
LOC: LAB.N 13:30
PROVIDERS: ATTEND Physician Assistant
DX: B35.1 Tinea unguium (principal)
CPT/HCPCS: 36415; 80053; 80076; 85025

== ENCOUNTER 2021-04-29 09:04 | Outpatient (CLI) | payer OTHER ==
[2021-04-29 11:54] LABS: BASOPHILS % (AUTO) 0.5 %; EOSINOPHILS # (AUTO) 0.2 10^3/uL (0.0-0.7); EOSINOPHILS % (AUTO) 2.8 %; HCT - HEMATOCRIT 44.7 % (37.0-47.0); HGB - HEMOGLOBIN 14.7 g/dL (12.0-16.0); LYMPHOCYTES # (AUTO) 1.7 10^3/uL (1.5-3.5); LYMPHOCYTES % (AUTO) 27.3 %; MEAN CORPUSCULAR HEMOGLOBIN 32.2 pg (27.0-31.0); MEAN CORPUSCULAR HGB CONC 32.9 g/dL (32.0-36.0); MEAN PLATELET VOLUME 11.2 fL (7.9-10.8); MONOCYTES # (AUTO) 0.5 10^3/uL (0.0-1.0); MONOCYTES % (AUTO) 7.6 %; NEUTROPHILS # (AUTO) 3.8 10^3/uL (1.5-6.6); NEUTROPHILS % (AUTO) 61.5 %; PLT - PLATELET COUNT 204 10^3/uL (130-450); RED BLOOD COUNT 4.56 10^6/uL (4.20-5.40); RED CELL DISTRIBUTION WIDTH 12.6 % (12.0-15.0); WHITE BLOOD COUNT 6.2 x10^3/uL (4.8-10.8)
[2021-04-29 12:33] LABS: ALBUMIN 4.5 g/dL (3.2-5.5); ALBUMIN/GLOBULIN RATIO 1.8 (1.0-2.2); BILIRUBIN,DIRECT 0.1 mg/dL (0.1-0.5); BILIRUBIN,TOTAL 0.7 mg/dL (0.2-1.0); CALCIUM 9.9 mg/dL (8.5-10.3); CREATININE 0.9 mg/dL (0.4-1.0); POTASSIUM 3.9 mmol/L (3.5-5.0)
== END 2021-04-29 09:05 | disposition home or self-care (01) ==
LOC: LAB.N 09:04
PROVIDERS: ATTEND Physician Assistant
DX: B35.1 Tinea unguium (principal)
CPT/HCPCS: 36415; 80053; 80076; 85025

== ENCOUNTER 2021-07-03 13:18 | Outpatient (CLI) | payer OTHER ==
--- NOTE | 2021-07-04 18:21 | Ultrasound Report ---
PROCEDURE: Head or Neck Soft Tissue INDICATIONS: BILATERAL THYROID NODULES TECHNIQUE: Real-time scanning was performed of the thyroid gland, with image documentation. COMPARISON: 01/12/2020, 04/15/2016, 03/17/2016 FINDINGS: Right: Thyroid lobe measures 6.1 x 1.7 x 1.7 cm, and is homogeneous in echotexture. Left: Thyroid lobe measures 5.4 x 1.5 x 1.4 cm, and is homogenous in echotexture. Isthmus: 3 mm thick. Nodule number: 1 Location: Right inferior Size: 3.3 x 1.8 x 2.1 cm, prior 2.9 x 1.6 x 2.2 cm. Composition: Predominately solid Echogenicity: Isoechoic Shape: wider than tall. Margins: Smooth Echogenic foci: None Total points: 3 ACR TI-RADS category: 3 Nodule number: 2 Location: Right inferior/lateral Size: 1.2 x 0.4 x 1 cm, prior 1.2 x 0.6 x 1 cm. Composition: Predominantly solid Echogenicity: Hypoechoic Shape: wider than tall. Margins: Smooth Echogenic foci: None Total points: 4 ACR TI-RADS category: 4 Nodule number: 3 Location: Left mid/lateral thyroid Size: 1 x 0.5 x 1 x 1 cm, prior 1 x 0.6 x 0.9 cm. Composition: Solid Echogenicity: Hypoechoic Shape: wider than tall. Margins: Smooth Echogenic foci: Punctate Total points: 7 ACR TI-RADS category: 5 Nodule number: 4 Location: Left superior thyroid Size: 0.5 x 0.2 x 0.5 cm. Composition: Solid Echogenicity: Hypoechoic Shape: Wider than tall Margins: Smooth Echogenic foci: None Total points: 4 ACR TI-RADS category: 4 IMPRESSION: Bilateral thyroid nodules are seen. A left mid thyroid nodule has been previously biopsied. This is s table compared to the prior examination. Please correlate with biopsy results. Mild increase in size of the largest right thyroid nodule. By published criteria, ultrasound-guided f ine-needle aspiration would be recommended. ACR TI-RADS definitions and recommendations: TI-RADS 1 (benign): 0 points. FNA not needed. TI-RADS 2 (not suspicious): 2 points. FNA not needed. TI-RADS 3 (mildly suspicious): 3 points. "FNA if 2.5 cm or larger, follow up if 1.5 cm or larger (at 1, 3, and 5 years). TI-RADS 4 (moderately suspicious): 4-6 points. "FNA if 1.5 cm or larger, follow up if 1 cm or larger (at 1, 2, 3, and 5 years). TI-RADS 5 (highly suspicious): 7 points or more. "FNA if 1 cm or larger, follow up if 0.5 cm or larger (every year for 5 years). Reviewed by: Alverto Musa MD on 07/04/2021 5:20 PM JULISSA Approved by: Alverto Musa MD on 07/04/2021 5:20 PM JULISSA Station ID: [id number]
== END 2021-07-03 13:19 | disposition home or self-care (01) ==
LOC: DI 13:18
PROVIDERS: ATTEND Internal Medicine
DX: E04.2 Nontoxic multinodular goiter (principal)

== ENCOUNTER 2021-07-30 10:16 | Outpatient (CLI) | payer OTHER ==
--- NOTE | 2021-07-31 07:48 | Mammography Report ---
BILATERAL DIGITAL SCREENING MAMMOGRAM 3D/2D: 07/30/2021 CLINICAL: Routine screening. Comparison is made to exams dated: 04/29/2020 ultrasound and 01/16/2020 mammogram - [facility]. The tissue of both breasts is extremely dense, which lowers the sensitivity of mammograp hy. No significant masses, calcifications, or other findings are seen in either breast. There has been no significant interval change. IMPRESSION: NEGATIVE There is no mammographic evidence of malignancy. A 1 year screening mammogram is recommended. This exam was interpreted at Station ID: [id number]. NOTE: For mammograms, a report in lay terms will be sent to the patient. Approximately 15% of breast malignancies will not be visualized mammographically. In the management of a palpable breast mass, a negative mammogram must not discourage biopsy of a clinically suspicious lesion. Electronically Signed By: Benny Maloney M.D. ar/penrad:07/30/2021 11:22:00 ACR BI-RADS Category 1: Negative 3341F PARENCHYMAL PATTERN: (VD) - The breast(s) demonstrate(s) extremely dense parenchyma, limiting the sen sitivity of mammography. BI-RADS CATEGORY: (1) - 1 RECOMMENDATION: (ANNUAL) - Recommend routine annual screening mammography. [id number] 1 year screening LATERALITY: (B)
== END 2021-07-30 10:17 | disposition home or self-care (01) ==
LOC: DI.N 10:16
PROVIDERS: ATTEND Obstetrics & Gynecology
DX: Z12.31 Encounter for screening mammogram for malignant neoplasm of breast (principal)

== ENCOUNTER 2022-01-19 09:00 | Outpatient (CLI) | payer OTHER ==
[2022-01-19 12:44] LABS: THYROID STIMULATING HORMONE 0.48 uIU/mL (0.34-5.60)
[2022-01-19 12:46] LABS: FREE T3 3.01 pg/mL (2.5-3.9); FREE T4 (FREE THYROXINE) 0.79 ng/dL (0.58-1.64)
== END 2022-01-19 09:01 | disposition home or self-care (01) ==
LOC: LAB.N 09:00
PROVIDERS: ATTEND Internal Medicine
DX: R94.6 Abnormal results of thyroid function studies (principal)
CPT/HCPCS: 36415; 81599; 83519; 84439; 84443; 84481

== ENCOUNTER 2022-05-13 08:37 | Outpatient (CLI) | payer OTHER ==
[2022-05-13 11:40] LABS: BASOPHILS % (AUTO) 0.4 %; EOSINOPHILS # (AUTO) 0.1 10^3/uL (0.0-0.7); EOSINOPHILS % (AUTO) 1.5 %; HCT - HEMATOCRIT 42.1 % (37.0-47.0); HGB - HEMOGLOBIN 13.8 g/dL (12.0-16.0); LYMPHOCYTES # (AUTO) 2.1 10^3/uL (1.5-3.5); LYMPHOCYTES % (AUTO) 31.1 %; MEAN CORPUSCULAR HEMOGLOBIN 33.2 pg (27.0-31.0); MEAN CORPUSCULAR HGB CONC 32.8 g/dL (32.0-36.0); MEAN CORPUSCULAR VOLUME 101.2 fL (81.0-99.0); MEAN PLATELET VOLUME 12.8 fL (7.9-10.8); MONOCYTES # (AUTO) 0.5 10^3/uL (0.0-1.0); NEUTROPHILS # (AUTO) 4.1 10^3/uL (1.5-6.6); NEUTROPHILS % (AUTO) 59.9 %; PLT - PLATELET COUNT 222 10^3/uL (130-450); RED BLOOD COUNT 4.16 10^6/uL (4.20-5.40); RED CELL DISTRIBUTION WIDTH 12.9 % (12.0-15.0); WHITE BLOOD COUNT 6.9 x10^3/uL (4.8-10.8)
[2022-05-13 12:19] LABS: THYROID STIMULATING HORMONE 0.7 uIU/mL (0.34-5.60)
[2022-05-13 12:20] LABS: FREE T3 3.09 pg/mL (2.5-3.9)
[2022-05-13 12:24] LABS: FREE T4 (FREE THYROXINE) 0.79 ng/dL (0.58-1.64)
[2022-05-13 12:46] LABS: FOLLICLE STIMULATING HORMONE 8.57 mIU/mL
[2022-05-13 12:47] LABS: LUTEINIZING HORMONE 11.69 mIU/mL
[2022-05-13 13:46] LABS: ALBUMIN/GLOBULIN RATIO 1.6 (1.0-2.2); BILIRUBIN,TOTAL 0.5 mg/dL (0.2-1.0); CALCIUM 9.8 mg/dL (8.5-10.3); CREATININE 0.8 mg/dL (0.4-1.0); POTASSIUM 4.3 mmol/L (3.5-5.0); TOTAL PROTEIN 6.5 g/dL (6.7-8.2)
[2022-05-14 07:10] LABS: ESTRADIOL 68.2 pg/mL (.)
== END 2022-05-13 08:38 | disposition home or self-care (01) ==
LOC: LAB.N 08:37
PROVIDERS: ATTEND Internal Medicine
DX: E04.1 Nontoxic single thyroid nodule (principal); R03.0 Elevated blood-pressure reading, without diagnosis of hypertension; L64.8 Other androgenic alopecia
CPT/HCPCS: 36415; 80053; 82670; 83001; 83002; 84270; 84402; 84403; 84439; 84443; 84481; 85025

== ENCOUNTER 2022-06-17 11:12 | Outpatient (CLI) | payer OTHER ==
--- NOTE | 2022-06-18 16:12 | Ultrasound Report ---
PROCEDURE: Head or Neck Soft Tissue INDICATIONS: THYROID NODULE TECHNIQUE: Real-time scanning was performed of the thyroid gland, with image documentation. COMPARISON: Thyroid ultrasound 07/03/2021. FINDINGS: Right: Thyroid lobe measures 6.1 x 1.6 x 2.1 cm, and is homogeneous in echotexture. Left: Thyroid lobe measures 4.9 x 1.2 x 1.4 cm, and is homogenous in echotexture. Isthmus: 2 mm thick. Nodule number: One Location: Right mid Size: 3.3 x 1.7 x 2.4 cm compared to 3.3 x 1.8 x 2.1 cm. Composition: Solid. Echogenicity: Hypoechoic. Shape: wider than tall. Margins: Smooth (0 points). Echogenic foci: None (0 points). Total points: 4 ACR TI-RADS category: 4. Nodule number: Two Location: Left mid Size: 0.4 x 0.2 x 0.4 cm compared to 0.5 x 0.2 x 0.5 cm. Composition: Solid. Echogenicity: Hypoechoic. Shape: wider than tall. Margins: Smooth (0 points). Echogenic foci: None (0 points). Total points: 4 ACR TI-RADS category: 4. Nodule number: Three Location: Left mid Size: 0.9 x 0.5 x 0.8 cm compared to 1.0 x 0.5 x 1.1 cm. Composition: Solid. Echogenicity: Hypoechoic. Shape: wider than tall. Margins: Smooth (0 points). Echogenic foci: None (0 points). Total points: 4 ACR TI-RADS category: 4. IMPRESSION: Stable appearance of lesions 1 through 3 CONSIDERED category 4. Secondary to size, lesion one recommendation is for FNA. Secondary to size, lesions 2 and 3 are recommended 1, 2, 3 and 5 years follow-up. Previously noted right inferior lesion not seen on current exam. ACR TI-RADS definitions and recommendations: TI-RADS 1 (benign): 0 points. FNA not needed. TI-RADS 2 (not suspicious): 2 points. FNA not needed. TI-RADS 3 (mildly suspicious): 3 points. "FNA if 2.5 cm or larger, follow up if 1.5 cm or larger (at 1, 3, and 5 years). TI-RADS 4 (moderately suspicious): 4-6 points. "FNA if 1.5 cm or larger, follow up if 1 cm or larger (at 1, 2, 3, and 5 years). TI-RADS 5 (highly suspicious): 7 points or more. "FNA if 1 cm or larger, follow up if 0.5 cm or larger (every year for 5 years). Reviewed by: Jami Curry MD on 06/18/2022 4:11 PM PDT Approved by: Jami Curry MD on 06/18/2022 4:11 PM PDT Station ID: [id number]
== END 2022-06-17 11:13 | disposition home or self-care (01) ==
LOC: DI 11:12
PROVIDERS: ATTEND Internal Medicine
DX: E04.2 Nontoxic multinodular goiter (principal)

== ENCOUNTER 2022-09-21 14:00 | Outpatient (CLI) | payer OTHER ==
[2022-09-21 18:39] LABS: CALCIUM 10.4 mg/dL (8.5-10.3); CREATININE 0.8 mg/dL (0.6-1.3); POTASSIUM 4.1 mmol/L (3.5-4.5); THYROID STIMULATING HORMONE 0.41 uIU/mL (0.34-5.60)
[2022-09-22 19:07] LABS: FREE TESTOSTERONE(DIRECT) 1.6 pg/mL (0.0-4.2)
== END 2022-09-21 14:01 | disposition home or self-care (01) ==
LOC: LAB.N 14:00
PROVIDERS: ATTEND Internal Medicine
DX: E04.1 Nontoxic single thyroid nodule (principal); L64.8 Other androgenic alopecia; N95.1 Menopausal and female climacteric states
CPT/HCPCS: 36415; 80048; 82627; 82670; 83001; 83002; 84270; 84402; 84403; 84439; 84443; 84481

== ENCOUNTER 2022-11-19 11:12 | Outpatient (CLI) | payer OTHER ==
[2022-11-19 18:02] LABS: ALBUMIN 4.7 g/dL (3.2-5.5); CALCIUM 10.5 mg/dL (8.5-10.3); CREATININE 0.8 mg/dL (0.6-1.3); POTASSIUM 4.3 mmol/L (3.5-4.5)
== END 2022-11-19 11:13 | disposition home or self-care (01) ==
LOC: LAB.N 11:12
PROVIDERS: ATTEND Nurse Practitioner Adult Health
DX: L65.8 Other specified nonscarring hair loss (principal)
CPT/HCPCS: 36415; 80053

== ENCOUNTER 2023-02-13 08:00 | Outpatient (CLI) | payer OTHER | END 2023-02-13 23:59 | disposition home or self-care (01) | LOC: LAB.N 08:00 | PROVIDERS: ATTEND Family Medicine | DX: R30.0 Dysuria (principal) | CPT/HCPCS: 87086 ==

== ENCOUNTER 2023-03-11 11:29 | Outpatient (CLI) | payer OTHER ==
[2023-03-11 17:57] LABS: CALCIUM 10.6 mg/dL (8.5-10.3); CREATININE 0.8 mg/dL (0.6-1.3)
[2023-03-11 18:13] LABS: THYROID STIMULATING HORMONE 0.44 uIU/mL (0.34-5.60)
[2023-03-12 21:10] LABS: FREE TESTOSTERONE(DIRECT) 1.7 pg/mL (0.0-4.2); SEX HORM BINDING GLOB SERUM 94.4 nmol/L (24.6-122.0)
== END 2023-03-11 11:30 | disposition home or self-care (01) ==
LOC: LAB.N 11:29
PROVIDERS: ATTEND Internal Medicine
DX: L65.8 Other specified nonscarring hair loss (principal)
CPT/HCPCS: 36415; 80048; 82627; 84270; 84402; 84403; 84439; 84443

== ENCOUNTER 2023-05-24 09:57 | Outpatient (CLI) | payer OTHER ==
--- NOTE | 2023-05-24 17:02 | Ultrasound Report ---
PROCEDURE: Soft Tissue Head or Neck INDICATIONS: THYROID NODULE TECHNIQUE: Real-time scanning was performed of the thyroid gland, with image documentation. COMPARISON: Thyroid ultrasound 06/17/2022, 2021, 2016 FINDINGS: Right: Thyroid lobe measures 6.3 x 1.6 x 1.7 cm, and is homogeneous in echotexture. Left: Thyroid lobe measures 5.1 x 1.2 x 1.2 cm, and is homogenous in echotexture. Isthmus: 2 cm thick. Nodule number: One Location: Right mid Size: 3.1 x 1.0 x 1.8 cm compared to 3.3 x 1.7 x 2.4 cm. Composition: Solid. Echogenicity: Hypoechoic. Shape: wider than tall (0 points). Margins: Smooth (0 points). Echogenic foci: None (0 points). Total points: 4 ACR TI-RADS category: 4 There are 2 additional foci of decreased echogenicity the largest measuring 9 mm. There are unchanged compared to prior exam. IMPRESSION: Stable category 4 lesion in the right thyroid lobe since 2017 and previously underwent FNA. Additional subcentimeter foci not requiring additional follow-up based on characteristics and prior e xams. ACR TI-RADS definitions and recommendations: TI-RADS 1 (benign): 0 points. FNA not needed. TI-RADS 2 (not suspicious): 2 points. FNA not needed. TI-RADS 3 (mildly suspicious): 3 points. "FNA if 2.5 cm or larger, follow up if 1.5 cm or larger (at 1, 3, and 5 years). TI-RADS 4 (moderately suspicious): 4-6 points. "FNA if 1.5 cm or larger, follow up if 1 cm or larger (at 1, 2, 3, and 5 years). TI-RADS 5 (highly suspicious): 7 points or more. "FNA if 1 cm or larger, follow up if 0.5 cm or larger (every year for 5 years). Reviewed by: Jami Curry MD on 05/24/2023 5:01 PM PDT Approved by: Jami Curry MD on 05/24/2023 5:01 PM PDT Station ID: [id number]
== END 2023-05-24 09:58 | disposition home or self-care (01) ==
LOC: DI 09:57
PROVIDERS: ATTEND Internal Medicine
DX: E04.2 Nontoxic multinodular goiter (principal)

== ENCOUNTER 2023-09-28 10:06 | Outpatient (CLI) | payer OTHER ==
[2023-09-28 18:41] LABS: CREATININE 0.8 mg/dL (0.6-1.3); POTASSIUM 4.6 mmol/L (3.5-4.5)
== END 2023-09-28 10:07 | disposition home or self-care (01) ==
LOC: LAB.N 10:06
PROVIDERS: ATTEND Internal Medicine
DX: Z51.81 Encounter for therapeutic drug level monitoring (principal); Z79.899 Other long term (current) drug therapy
CPT/HCPCS: 36415; 80048